=== PATIENT | male | born 1950 | race Caucasian/White ===

== ENCOUNTER 2020-08-17 06:12 | Emergency (ER) | payer BC, MEDICARE ==
--- NOTE | 2020-08-17 07:23 | EDM.PDOC ---
ED HPI GENERAL MEDICAL PROBLEM - General Chief Complaint: Abdominal Pain Stated Complaint: ABD PAIN Time Seen by Provider: 08/17/20 07:20 Source of Information: Reports: Patient History Limitations: Reports: No Limitations - History of Present Illness INITIAL COMMENTS - FREE TEXT/NARRATIVE: pt arived with l;eft lower abdomanal pain. He started with this yesterday. He is feeling quite bloated. He has not had a bm for 36 hours and he usually goes every day. Onset: Other ( started yesterday.) Duration: Hour(s): Location: Reports: Abdomen, Other (pt did go to [employer] monday and wonders if he could have strained a muscle. ) Associated Symptoms: Reports: No Other Symptoms left abd Pain Score (Numeric/FACES): 3 - Related Data Allergies Allergy/AdvReac Type Severity Reaction Status Date / Time No Known Allergies Allergy Verified 08/17/20 06:39 Home Meds: Home Meds lisinopriL [Prinivil] 10 mg PO BEDTIME tablet 09/07/16 [Rx] Calcium Carbonate [Calcium] 500 mg PO BID 08/17/20 [History] Cholecalciferol (Vitamin D3) [Vitamin D3] 1,000 unit PO DAILY 08/17/20 [History] Glucosam/Chondr/Collagn/Hyalur [Glucosamine & Chondroitin Cap] 2 each PO DAILY 08/17/20 [History] Multivitamin [Multivitamins] 1 each PO DAILY 08/17/20 [History] traZODone 50 mg PO BEDTIME 08/17/20 [History] Past Medical History HEENT History: Reports: None Cardiovascular History: Reports: Hypertension Respiratory History: Reports: None Gastrointestinal History: Reports: Colon Polyp Genitourinary History: Reports: Prostate Disorder Musculoskeletal History: Reports: Other (See Below) Other Musculoskeletal History: left shoulder problem no surgery Neurological History: Reports: None Psychiatric History: Reports: None Endocrine/Metabolic History: Reports: None Hematologic History: Reports: None Immunologic History: Reports: None Oncologic (Cancer) History: Reports: None Dermatologic History: Reports: Eczema - Infectious Disease History Infectious Disease History: Reports: Measles - Past Surgical History Head Surgeries/Procedures: Reports: None GI Surgical History: Reports: Colon, Colonoscopy, Hernia Repair/Other Musculoskeletal Surgical History: Reports: Hip Replacement, Knee Replacement Social & Family History - Family History Family Medical History: Noncontributory Musculoskeletal: Reports: None Neurological: Reports: Dementia - Tobacco Use Smoking Status *Q: Former Smoker Used Tobacco, but Quit: Yes Month/Year Tobacco Last Used: 2014 - Caffeine Use Caffeine Use: Reports: Coffee Caffeine Use Comment: [employer] IN THE MORNING - Alcohol Use Days Per Week of Alcohol Use: 4 Number of Drinks Per Day: 1 Total Drinks Per Week: 4 - Recreational Drug Use Recreational Drug Use: No ED ROS GENERAL - Review of Systems Review Of Systems: See Below Constitutional: Reports: Decreased Appetite. Denies: Other (bloated) HEENT: Reports: No Symptoms Respiratory: Reports: No Symptoms Cardiovascular: Reports: No Symptoms Endocrine: Reports: No Symptoms GI/Abdominal: Reports: Abdominal Pain, Decreased Appetite : Reports: No Symptoms Musculoskeletal: Reports: No Symptoms Neurological: Reports: No Symptoms Psychiatric: Reports: No Symptoms ED EXAM, GI/ABD - Physical Exam Exam: See Below Text/Narrative:: pt arrived with left lower abdomanal pain. He has not had a bm for 36 hours. This is unusual for him. He did exercise on a different machine at [employer] on Monday. He has not had a fever. Exam Limited By: No Limitations General Appearance: Alert, Anxious, Moderate Distress Ears: Normal TMs Nose: Normal Inspection Throat/Mouth: Normal Inspection Head: Atraumatic Neck: Normal Inspection Respiratory/Chest: No Respiratory Distress Cardiovascular: Regular Rate, Rhythm GI/Abdominal Exam: Tender, Other (pt has tenderness in the left lower abdoman. ) (Male) Exam: Deferred Rectal (Males) Exam: Deferred Back Exam: Normal Inspection Extremities: Normal Inspection Neurological: Alert, Oriented, Normal Cognition Course - Vital Signs Last Recorded V/S: Last Vital Signs Temp 36.3 C 08/17/20 06:43 Pulse 68 08/17/20 08:08 Resp 16 08/17/20 08:08 BP 140/65 08/17/20 08:08 Pulse Ox 96 08/17/20 08:08 - Orders/Labs/Meds Orders: Active Orders 24 hr Category Date Time Status Iopamidol [Isovue-300 (61%)] Med 08/17/20 08:30 Active 122 ml IV . DIRECTED Sodium Chloride 0.9% [Normal Saline] 1,000 ml Med 08/17/20 08:00 Active IV ASDIRECTED Sodium Chloride 0.9% [Saline Flush] Med 08/17/20 08:16 Active 10 ml FLUSH ONETIME PRN Medication Orders Sodium Chloride (Normal Saline) 1,000 mls @ 999 mls/hr IV ASDIRECTED [facility] Last Admin: 08/17/20 09:04 Dose: 999 mls/hr Documented by: BRIAN Iopamidol (Isovue-300 (61%)) 122 ml IV . DIRECTED [facility] Last Admin: 08/17/20 08:31 Dose: 122 ml Documented by: QUYNH Sodium Chloride (Saline Flush) 10 ml FLUSH ONETIME PRN PRN Reason: PER RADIOLOGY PROTOCOL Last Admin: 08/17/20 08:33 Dose: 10 ml Documented by: QUYNH Labs: Laboratory Tests 08/17/20 08/17/20 08/17/20 Range/Units 06:59 07:23 07:23 WBC 9.7 (4.5-11.0) K/uL RBC 4.61 (4.30-5.90) M/uL Hgb 14.6 (12.0-15.0) g/dL Hct 44.1 (40.0-54.0) % MCV 96 (80-98) fL MCH 32 H (27-31) pg MCHC 33 (32-36) % Plt Count 177 (150-400) K/uL Neut % (Auto) 77 H (36-66) % Lymph % (Auto) 13 L (24-44) % [place] % (Auto) 9 H (2-6) % Eos % (Auto) 1 L (2-4) % Baso % (Auto) 0 (0-1) % Sodium (140-148) mmol/L Potassium (3.6-5.2) mmol/L Chloride (100-108) mmol/L Carbon Dioxide (21-32) mmol/L Anion Gap (5.0-14.0) mmol/L BUN (7-18) mg/dL Creatinine (0.8-1.3) mg/dL Est Cr Clr Drug Dosing mL/min Estimated GFR (MDRD) (>60) Glucose (74-106) mg/dL Calcium (8.5-10.1) mg/dL Total Bilirubin (0.2-1.0) mg/dL AST (15-37) U/L ALT (12-78) U/L Alkaline Phosphatase (46-116) U/L C-Reactive Protein 0.56 H (0.0-0.3) mg/dL Total Protein (6.4-8.2) g/dL Albumin (3.4-5.0) g/dL Globulin (2.3-3.5) g/dL Albumin/Globulin Ratio (1.2-2.2) Lipase (73-393) U/L Urine Color Yellow (YELLOW) Urine Appearance Clear (CLEAR) Urine pH 6.0 (5.0-8.0) Ur Specific [place] 1.010 (1.008-1.030) Urine Protein Negative (NEGATIVE) mg/dL Urine Glucose (UA) Negative (NEGATIVE) mg/dL Urine Ketones Negative (NEGATIVE) mg/dL Urine Occult Blood Trace-intact H (NEGATIVE) Urine Nitrite Negative (NEGATIVE) Urine Bilirubin Negative (NEGATIVE) Urine Urobilinogen 0.2 (0.2-1.0) EU/dL Ur Leukocyte Esterase Negative (NEGATIVE) Urine RBC 0-5 (0-5) Urine WBC Not seen (0-5) Ur Epithelial Cells Not seen Amorphous Sediment Not seen Urine Bacteria Not seen Urine Mucus Not seen 08/17/20 08/17/20 Range/Units 07:23 07:44 WBC (4.5-11.0) K/uL RBC (4.30-5.90) M/uL Hgb (12.0-15.0) g/dL Hct (40.0-54.0) % MCV (80-98) fL MCH (27-31) pg MCHC (32-36) % Plt Count (150-400) K/uL Neut % (Auto) (36-66) % Lymph % (Auto) (24-44) % [place] % (Auto) (2-6) % Eos % (Auto) (2-4) % Baso % (Auto) (0-1) % Sodium 141 (140-148) mmol/L Potassium 4.1 (3.6-5.2) mmol/L Chloride 106 (100-108) mmol/L Carbon Dioxide 26 (21-32) mmol/L Anion Gap 8.9 (5.0-14.0) mmol/L BUN 15 D (7-18) mg/dL Creatinine 0.8 (0.8-1.3) mg/dL Est Cr Clr Drug Dosing 76.43 mL/min Estimated GFR (MDRD) > 60 (>60) Glucose 118 H (74-106) mg/dL Calcium 8.9 (8.5-10.1) mg/dL Total Bilirubin 0.9 (0.2-1.0) mg/dL AST 17 (15-37) U/L ALT 27 (12-78) U/L Alkaline Phosphatase 64 (46-116) U/L C-Reactive Protein (0.0-0.3) mg/dL Total Protein 6.7 (6.4-8.2) g/dL Albumin 3.6 (3.4-5.0) g/dL Globulin 3.1 (2.3-3.5) g/dL Albumin/Globulin Ratio 1.2 (1.2-2.2) Lipase 59 L (73-393) U/L Urine Color (YELLOW) Urine Appearance (CLEAR) Urine pH (5.0-8.0) Ur Specific [place] (1.008-1.030) Urine Protein (NEGATIVE) mg/dL Urine Glucose (UA) (NEGATIVE) mg/dL Urine Ketones (NEGATIVE) mg/dL Urine Occult Blood (NEGATIVE) Urine Nitrite (NEGATIVE) Urine Bilirubin (NEGATIVE) Urine Urobilinogen (0.2-1.0) EU/dL Ur Leukocyte Esterase (NEGATIVE) Urine RBC (0-5) Urine WBC (0-5) Ur Epithelial Cells Amorphous Sediment Urine Bacteria Urine Mucus Meds: Medications Generic Name Dose Route Start Last Admin Trade Name Freq PRN Reason Stop Dose Admin Sodium Chloride 1,000 mls @ 999 mls/hr 08/17/20 08:00 08/17/20 09:04 Normal Saline IV 999 mls/hr ASDIRECTED WING Administration Iopamidol 122 ml 08/17/20 08:30 08/17/20 08:31 Isovue-300 (61%) IV 122 ml . DIRECTED WING Administration Sodium Chloride 10 ml 08/17/20 08:16 08/17/20 08:33 Saline Flush FLUSH 10 ml ONETIME PRN Administration PER RADIOLOGY PROTOCOL Discontinued Medications Generic Name Dose Route Start Last Admin Trade Name Freq PRN Reason Stop Dose Admin Sodium Chloride 75 mls @ 3 mls/sec 08/17/20 08:16 08/17/20 08:33 Normal Saline IV 08/17/20 08:17 3 mls/sec ONETIME ONE Administration - Re-Assessments/Exams Free Text/Narrative Re-Assessment/Exam: 08/17/20 08:02 pt has a normal wbc with a increase in neutrophils. He has a clear urine. His crp is mildly elevated. 08/17/20 09:16 pt had a cat scan of the abdoman which showed some stasis above the anastomosis site. Departure - Departure Time of Disposition: 11:12 Disposition: Home, Self-Care 01 Condition: Fair Clinical Impression: Constipation - Discharge Information Referrals: Juan Triana MD [Primary Care Provider] - Forms: ED Department Discharge Care Plan Goals: Dr Suárez saw pt and felt li ke he was mainly constipated. He advised dietary changes and went through this with him. He will see him back in followup at the clinic. Sepsis Event Note (ED) - Evaluation Sepsis Screening Result: No Definite Risk - Focused Exam Vital Signs: Vital Signs Temp Pulse Resp BP Pulse Ox 08/17/20 08:08 68 16 140/65 96 08/17/20 06:43 36.3 C 56 L 19 176/78 H 97 - My Orders Last 24 Hours: My Active Orders 08/17/20 08:00 Sodium Chloride 0.9% [Normal Saline] 1,000 ml IV ASDIRECTED 08/17/20 08:16 Sodium Chloride 0.9% [Saline Flush] 10 ml FLUSH ONETIME PRN 08/17/20 08:30 Iopamidol [Isovue-300 (61%)] 122 ml IV . DIRECTED - Assessment/Plan Last 24 Hours: My Active Orders 08/17/20 08:00 Sodium Chloride 0.9% [Normal Saline] 1,000 ml IV ASDIRECTED 08/17/20 08:16 Sodium Chloride 0.9% [Saline Flush] 10 ml FLUSH ONETIME PRN 08/17/20 08:30 Iopamidol [Isovue-300 (61%)] 122 ml IV . DIRECTED
[2020-08-17] MEDS ORDERED: Sodium Chloride 0.9% 1,000 ML IV SCH (08:00)
[2020-08-17 08:16] VITALS: BP 140/65; PULSE 68
[2020-08-17] MEDS ORDERED: Sodium Chloride 0.9% 75 ML IV ONE (08:16)
[2020-08-17] MEDS ORDERED: Sodium Chloride 0.9% 10 ML Syringe FLUSH PRN (08:16)
[2020-08-17] MEDS ORDERED: Iopamidol 612 MG/ML 150 ML Bottle IV SCH (08:30)
--- NOTE | 2020-08-17 08:55 | CRLCT ---
INDICATION: Left lower abdominal pain COMPARISON: None TECHNIQUE: CT examination of the abdomen and pelvis was performed following the uneventful intravenous administration of 122 cc of Isovue-300. Thin section axial images were obtained from the lung bases through the pubic symphysis. Oral contrast was not administered. Please note that all CT scans at this facility use dose modulation, iterative reconstruction, and/or weight-based dosing when appropriate to reduce radiation dose to as low as reasonably achievable. FINDINGS: LUNG BASES: Linear opacities at the lung bases are likely related to atelectasis or scarring.Heart size normal lung bases. Small hiatal hernia. LIVER/BILIARY SYSTEM:Hepatic steatosis. Several small low-density lesions consistent with cysts. No biliary ductal dilatation. Normal appearing gallbladder. ADRENALS: Prominent adrenal glands but no discrete measurable nodule. KIDNEYS, URETERS and BLADDER:Kidneys normal in size. Peripelvic sinus lymphatics cysts bilaterally. Scattered low-density cortical lesions too small to characterize but likely cysts. Bladder as visualized appears normal. SPLEEN:Normal appearance. PANCREAS: Appears normal. RETROPERITONEUM and MESENTERY: There is no mass, adenopathy or aortic aneurysm. Atherosclerotic vascular calcifications. GASTROINTESTINAL SYSTEM: Relatively extensive postsurgical changes. There is an area of stasis and moderate dilation of a small portion of small bowel just proximal to the anastomotic site. However, there is no significant upstream dilation or air-fluid levels and therefore this does not clearly constitute a mechanical obstruction at this time. Follow-up is recommended. Elsewhere, there is fecal retention. No evidence of colitis or ischemia or diverticulitis PELVIS: Not well evaluated due to streak artifact associated with a right hip arthroplasty.. OSSEOUS STRUCTURES and ABDOMINAL WALL: Demineralization and degenerative change. 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 Small fat containing left inguinal hernia. Status post right inguinal herniorrhaphy. OTHER: No free fluid or free air. IMPRESSION: 1. There is an area of stasis and dilation of a small segment of small bowel just proximal to the anastomotic site in the low central abdomen. No significant upstream dilation or air-fluid levels. Therefore this does not constitute a riri mechanical obstruction at this time. Fecal retention. No evidence of diverticulitis or colitis 2. Multiple additional nonacute appearing incidental findings as discussed above Please note that all CT scans at this facility use dose modulation, iterative reconstruction, and/or weight-based dosing when appropriate to reduce radiation dose to as low as reasonably achievable. Dictated by Angel uLis Ames MD @ Aug 17 2020 8:45AM Signed by Dr. Angel Luis Ames @ Aug 17 2020 8:53AM
--- NOTE | 2020-08-17 21:44 | CONS ---
DATE OF SERVICE: 08/17/2020 REFERRING PHYSICIAN: CONSULTING PHYSICIAN: Everardo Suárez MD REASON FOR CONSULTATION: Abdominal pain. HISTORY OF PRESENT ILLNESS: A pleasant 70-year-old male, who has had less than approximately a few hours of abdominal pain. The patient reports he had a bowel movement yesterday. He has pain that has been 1 to 2 out of 10 but has increased significantly in the last several hours. No nausea, vomiting, shortness of breath, or chest pain. The patient did have a small bowel resection approximately 4 years ago. SOCIAL HISTORY: He is a nonsmoker. REVIEW OF SYSTEMS: HEENT: No symptoms. RESPIRATORY: No recent COVID exposure. CARDIOVASCULAR: Hypertension. GENITOURINARY: No dysuria. GASTROINTESTINAL: As above. NEUROLOGICAL: No symptoms. PSYCHIATRIC: No gross symptoms. ONCOLOGY: No symptoms. The remainder of the review of systems is reviewed and negative. PHYSICAL EXAMINATION: VITAL SIGNS: Temperature 97.4, blood pressure 176/78, and pulse 56. GENERAL: The patient is resting very comfortably. HEENT: Pupils are equal. NECK: Supple. LUNGS: Clear. CARDIOVASCULAR: Regular rhythm and rate. ABDOMEN: Obese. Nontender. Nondistended. No rebound. No guarding. EXTREMITIES: Full range of motion. NEUROLOGICAL: Oriented x3. PSYCHIATRIC: No gross depression. IMAGING DATA: I did review the CT scan, which showed a large amount of stool. ASSESSMENT AND PLAN: The patient does have abdominal pain, and there is a slight amount of thickening near the anastomosis; however, there is no evidence of bowel obstruction. There is no dilation upstream from the anastomosis. He is having bowel movements and essentially has almost no pain. The recommendations are to place the patient on a full liquid diet for approximately 48 hours and allow his constipation to improve, which we discussed how to susana those symptoms also, and he is to follow up as needed. Everardo Suárez MD /[id number]
== END 2020-08-17 11:30 | disposition home or self-care (01) ==
LOC: JP.ED 06:12
DX: K59.00 Constipation, unspecified (principal); I10 Essential (primary) hypertension; Z79.899 Other long term (current) drug therapy; Z87.891 Personal history of nicotine dependence
CPT/HCPCS: 36415; 74177; 80053; 81001; 83690; 85025; 86140; 99284; J7030; Q9967

== ENCOUNTER 2021-02-22 07:14 | Day surgery (SDC) | payer MEDICARE ==
[~2021-02-22 07:14] MED LIST: Midazolam 1 MG/ML 2 ML SDV ONE; Propofol 200 MG/20 ML SDV ONE; fentaNYL 100 MCG/2 ML SDV ONE
[2021-02-22] MEDS ORDERED: Sodium Chloride 0.9% 1,000 ML IV SCH (08:00)
[2021-02-22] MEDS ORDERED: Glycopyrrolate 0.2 MG/ML 5 ML MDV ONE (09:23)
[2021-02-22 10:57] VITALS: BP 101/62; PULSE 56
--- NOTE | 2021-02-23 09:26 | OR ---
DATE OF PROCEDURE: 02/22/2021 SURGEON: Everardo Suárez MD PROCEDURE: Colonoscopy. FINDINGS: Descending colon polyp, approximately 5 mm, completely removed using cold biopsy forceps. COMPLICATIONS: None. ED TRANSPORTER: None. ANESTHETIC: MAC. RISKS: Risks, benefits, alternatives, and limitations including, but not limited to infection, bleeding, perforation, false positives and false negatives were explained to the patient and wished to proceed. PROCEDURE IN DETAIL: The patient was placed in left lateral decubitus position. Digital rectal exam was performed without abnormality. Scope was introduced and advanced atraumatically to ileocecal valve. The scope was brought back to the ascending, transverse, descending colon, and retroflexed. The aforementioned polyp was identified and completely removed. No diverticulosis. No colitis. No old or new blood. No abnormalities on retroflexion. Greater than 8 minutes was spent removing the scope. The prep was acceptable, approximately 90% luminal surface could be seen. The patient tolerated the procedure well. Everardo Suárez MD /[id number]
== END 2021-02-22 10:59 | disposition home or self-care (01) ==
LOC: JP.SDS 07:14
PROVIDERS: ATTEND Surgery
DX: Z12.11 Encounter for screening for malignant neoplasm of colon (principal); K63.5 Polyp of colon; I10 Essential (primary) hypertension
CPT/HCPCS: 45380; J2250; J2704; J3010; J3490; J7030; 88305